=== PATIENT | male | born 1975 | race Caucasian/White ===

== ENCOUNTER 2017-09-24 08:33 | Emergency (ER) | payer SELFPAY ==
[~2017-09-24] VITALS: Ht 185.4 cm; Wt 102.3 kg
[2017-09-24 08:36] VITALS: BP 138/86; PULSE 68; TEMP 98.2
[2017-09-24] MEDS ORDERED: PREDNISONE20 MG PO (08:58)
== END 2017-09-24 09:08 | disposition home or self-care (01) ==
LOC: COL.ER 08:33
DX: T63.461A Toxic effect of venom of wasps, accidental (unintentional), initial encounter (principal)